=== PATIENT | male | born 1970 | race African-American/Black ===

== ENCOUNTER 2024-11-02 08:30 | Inpatient (IN) | payer BC, OTHER ==
[2024-11-02 09:11] VITALS: BMI 29.1
[2024-11-02] MEDS ORDERED: NALOXONE (NARCAN) HCL 4 MG/0.1 ML SPRAY NS PRN (09:22)
[2024-11-02] MEDS ORDERED: DICYCLOMINE HCL 10 MG CAPSULE PO PRN (09:22)
[2024-11-02] MEDS ORDERED: MAGNESIUM HYDROX 2400MG/30ML ORAL SUSPENSION 30 ML CUP PO PRN (09:22)
[2024-11-02] MEDS ORDERED: LOPERAMIDE HCL 2 MG CAPSULE PO PRN (09:22)
[2024-11-02] MEDS ORDERED: POLYETHYLENE GLYCOL (HEALTHYLAX) 3350 17 GM PACKET PO PRN (09:22)
[2024-11-02] MEDS ORDERED: NICOTINE POLACRILEX 4 MG GUM BUC PRN (09:22)
[2024-11-02] MEDS ORDERED: BENZOCAINE/MENTHOL (CHLORASEPTIC ) LOZENGE MM PRN (09:22)
[2024-11-02] MEDS ORDERED: ACETAMINOPHEN 325 MG TABLET (FP) PO PRN (09:22)
[2024-11-02] MEDS ORDERED: MAG HYDROX/AL HYDROX/SIMETH 30 ML UNIT-DOSE CUP PO PRN (09:22)
[2024-11-02] MEDS ORDERED: BISMUTH SUBSALICYLATE 262 MG/15 ML BTL PO PRN (09:22)
[2024-11-02] MEDS ORDERED: IBUPROFEN 400 MG TABLET (FP) PO PRN (09:22)
[2024-11-02] MEDS ORDERED: ONDANSETRON *ODT* 4 MG TABLET SL PRN (09:22)
[2024-11-02] MEDS ORDERED: BENZONATATE 200 MG CAPSULE PO PRN (09:22)
[2024-11-02] MEDS ORDERED: guaiFENesin 600 MG TABLET.ER (FP) PO PRN (09:22)
[2024-11-02] MEDS ORDERED: methaDONE HCL 10 MG TABLET (FOR DETOX USE ONLY) ONE (10:06)
[2024-11-02] MEDS ORDERED: PRENATAL VITAMINS W/ FOLIC ACID TABLET (FP) PO ONE (10:07)
[2024-11-02] MEDS ORDERED: cloNIDine HCL 0.1 MG TABLET ONE (10:07)
[2024-11-02] MEDS: methaDONE HCL 10 MG TABLET PO ONE (10:23)
[2024-11-02] MEDS: NICOTINE 21 MG/24 HOURS TOPICAL PATCH TD SCH (10:25)
[2024-11-02] MEDS: cloNIDine HCL 0.1 MG TABLET PO SCH (10:26)
[2024-11-02] MEDS: PRENATAL VITAMINS W/ FOLIC ACID TABLET (FP) PO SCH (10:26)
[2024-11-02] MEDS: methaDONE HCL 10 MG TABLET PO PRN (17:18)
[2024-11-02] MEDS: MELATONIN 5 MG TABLETS PO SCH (22:10)
[2024-11-02] MEDS: THIAMINE 100 MG TABLET PO SCH (22:11)
[2024-11-02] MEDS: DIVALPROEX SODIUM 500 MG TABLET E.C. PO SCH (22:12)
[2024-11-02] MEDS: PRAZOSIN HCL 1 MG CAPSULE PO SCH (22:13)
[2024-11-02] MEDS: traZODone HCL 50 MG TABLET (FP) PO SCH (22:13)
[2024-11-02] MEDS: ARIPiprazole 10 MG TABLET PO SCH (22:13)
[2024-11-03] MEDS: FLUoxetine HCL 20 MG CAPSULE PO SCH (09:22)
[2024-11-03] MEDS: METHOCARBAMOL 500 MG TABLET PO PRN (09:22)
[2024-11-03 09:37] LABS: POTASSIUM 4.5 mmol/L (3.5-5.1)
[2024-11-03 09:42] LABS: HEMATOCRIT 39.5 % (35.4-49); HEMOGLOBIN 13.2 GM/dL (11.7-16.9); MCH 29.5 pg (25.7-33.7); MCHC 33.4 g/dl (32.0-35.9); MEAN CELL VOLUME 88.1 fl (80-96); MEAN PLT VOLUME 8.6 fl (7.5-11.1); PLATELET COUNT 231 10^3/uL (134-434); RBC 4.48 M/mm3 (4.00-5.60); RDW 13.8 % (11.9-15.9); WHITE BLOOD COUNT 6.1 K/mm3 (4.0-10.0)
[2024-11-03 09:56] LABS: CALCIUM 9.1 mg/dL (8.5-10.1)
[2024-11-03 09:57] LABS: ALBUMIN 3.4 g/dl (3.4-5.0); BLOOD UREA NITROGEN 8.1 mg/dL (7-18)
[2024-11-03 10:00] LABS: BILIRUBIN,TOTAL 0.4 mg/dL (0.2-1); CREATININE 1.1 mg/dL (0.55-1.3)
[2024-11-03] MEDS: hydrOXYzine PAMOATE 25 MG CAPSULE (FP) PO PRN (14:10)
[2024-11-04] MEDS ORDERED: cloNIDine HCL 0.1 MG TABLET PO PRN
[2024-11-04] MEDS: methaDONE 40 MG, methaDONE 10 MG PO ONE (09:29)
[2024-11-04] MEDS: IBUPROFEN 600 MG TABLET (FP) PO PRN (17:12)
[2024-11-04] MEDS: PHENobarbital 30 MG TABLET PO SCH (22:01)
[2024-11-06] MEDS: methaDONE 40 MG, methaDONE 20 MG PO ONE (09:31)
[2024-11-07 17:03] VITALS: RESP 18
[2024-11-08 07:23] VITALS: BP 118/81; PULSE 67; TEMP 97.6
== END 2024-11-08 08:50 | disposition other institution (70) | DRG 897 ==
LOC: YASAS 08:30 → Y6N 09:38 → UNDODISIN 11-07 13:20
PROVIDERS: ADMIT Allergy & Immunology; ATTEND Allergy & Immunology
PROC: HZ2ZZZZ Detoxification Services for Substance Abuse Treatment (ICD-10-PCS; principal; 2024-11-02)
DX: F10.230 Alcohol dependence with withdrawal, uncomplicated (principal); F14.20 Cocaine dependence, uncomplicated; F19.282 Other psychoactive substance dependence with psychoactive substance-induced sleep disorder; F12.20 Cannabis dependence, uncomplicated; F17.210 Nicotine dependence, cigarettes, uncomplicated; F25.9 Schizoaffective disorder, unspecified; F31.9 Bipolar disorder, unspecified; F43.10 Post-traumatic stress disorder, unspecified; G40.909 Epilepsy, unspecified, not intractable, without status epilepticus; E11.9 Type 2 diabetes mellitus without complications; R15.9 Full incontinence of feces; R32 Unspecified urinary incontinence; Z96.9 Presence of functional implant, unspecified
CPT/HCPCS: 36415; 80053; 80184; 80305; 80307; 82962; 83036; 85027; 86780; 87811; 93005; 93010